=== PATIENT | female | born 1935 | race American Indian/Alaskan Native ===

== ENCOUNTER 2016-10-19 17:28 | Observation (INO) | payer MEDICARE, MEDICAID ==
[2016-10-19 17:29] VITALS: PULSE 80
[2016-10-19 17:58] VITALS: BMI 16.6
--- NOTE | 2016-10-19 18:27 | ED PDOC ---
Arrival/HPI - General Historian: Patient, Family - History of Present Illness Time/Duration: 24 hours Symptom Onset: Sudden Symptom Course: Unchanged <Kelechi Hutchinson - Last Filed: 10/19/16 21:33> <Demarcus Donato Meka - Last Filed: 10/19/16 22:34> - General Chief Complaint: Abdominal Pain Time Seen by Provider: 10/19/16 17:31 - History of Present Illness Narrative History of Present Illness (Text): 10/19/16 18:21 81 F with PMHx of gastritis, CHF, CAD, SBO and Takotsubo syndrome presents to [facility] ED with complaints of nausea and vomiting. Pt's family was at bedside and helped with history as pt has baseline dementia. It was reported that the pt began feeling nauseous last night and subsequently vomited nbnb emesis a total of 6 times, last of which was this morning. Pt had a bowel movement this morning , however, was unable to describe whether or not it was loose. Pt family also provided that the patient stated that her abdomen was hurting her this morning, prior to coming to the ED. Pt admitted to dizziness. ROS unavailable on account of AMS. PMD: Dr. Hanks (Kelechi Hutchinson) Past Medical History - Past History Past History: No Previous - Tetanus Immunization Tetanus Immunization: Unknown - Past Medical History Past Medical History: No Previous - Pulmonary Hx Pneumonia: Yes - Neurological Hx Dementia: Yes - HEENT Hx Difficulty Chewing: No Hx Glaucoma: Yes - Endocrine/Metabolic Hx Endocrine Disorders: No - Hematological/Oncological Hx Blood Transfusions: No Hx Blood Transfusion Reaction: No - Musculoskeletal/Rheumatological Hx Falls: No - Gastrointestinal Hx Gastrointestinal Disorders: Yes - Genitourinary/Gynecological Hx Genitourinary Disorders: No Hx Reproductive Disorders: No - Psychiatric Hx Psychophysiologic Disorder: No Hx Emotional Abuse: No Hx Physical Abuse: No Hx Substance Use: No - Past Surgical History Past Surgical History: No Previous - Surgical History Other/Comment: ABD SURGERY - Anesthesia Hx Anesthesia Reactions: No Hx Malignant Hyperthermia: No - Suicidal Assessment Feels Threatened In Home Enviroment: No <Kelechi Hutchinson - Last Filed: 10/19/16 21:33> Family/Social History Family/Social History: No Known Family HX Smoking Status: Never Smoked Hx Alcohol Use: No Hx Substance Use: No Hx Substance Use Treatment: No <Kelechi Hutchinson - Last Filed: 10/19/16 21:33> Allergies/Home Meds <Kelechi Hutchinson - Last Filed: 10/19/16 21:33> <Demarcus Donato - Last Filed: 10/19/16 22:34> Allergies/Adverse Reactions: Allergies unknown iv med Allergy (Uncoded 10/19/16 17:32) DIZZINESS Home Medications: Home Meds Medication Instructions Recorded Confirmed Vitamin B Complex & Vitamin C 1 tab PO DAILY 08/15/12 10/19/16 [Strovite] Aspirin [Adult Low Dose Aspirin EC] 81 mg PO DAILY 10/19/16 10/19/16 Brimonidine Tartrate/Timolol 1 drop OU BID 10/19/16 10/19/16 [Combigan 0.2%-0.5% Eye Drops] Memantine HCl [Namenda Xr] 1 cap PO DAILY 10/19/16 10/19/16 Review of Systems - Review of Systems Systems not reviewed;Unavailable: Altered Mental Status <Kelechi Hutchinson - Last Filed: 10/19/16 21:33> Physical Exam - Physical Exam Physical Exam Limitations: Altered Mental Status Temperature: Afebrile Blood Pressure: Hypertensive Pulse: Regular Respiratory Rate: Normal Appearance: Positive for: Well-Appearing, Non-Toxic, Comfortable Pain Distress: None Mental Status: Positive for: Lethargic, other (AAOx2) - Systems Exam Head: Present: Atraumatic, Normocephalic Pupils: Present: PERRL Extroacular Muscles: Present: EOMI Conjunctiva: Present: Normal Mouth: Present: Moist Mucous Membranes Neck: Present: Normal Range of Motion Respiratory/Chest: Present: Clear to Auscultation, Good Air Exchange. No: Respiratory Distress, Accessory Muscle Use Cardiovascular: Present: Regular Rate and Rhythm, Normal S1, S2. No: Murmurs Abdomen: Present: Normal Bowel Sounds. No: Tenderness, Distention, Peritoneal Signs Upper Extremity: Present: Normal Inspection. No: Cyanosis, Edema Lower Extremity: Present: Normal Inspection. No: Edema Neurological: Present: GCS=15, CN II-XII Intact, Speech Normal Skin: Present: Warm, Dry, Normal Color. No: Rashes Psychiatric: Present: Lethargic <Kelechi Hutchinson - Last Filed: 10/19/16 21:33> Vital Signs Temp Pulse Resp BP Pulse Ox 10/19/16 18:51 84 176/93 H 10/19/16 18:26 97.1 F L 10/19/16 18:22 79 16 176/93 H 94 L 10/19/16 17:41 97.5 F L 84 22 181/123 H 99 Medical Decision Making Re-evaluation Time: 21:40 Reassessment Condition: Improving,but remains with symptoms <Kelechi Hutchinson - Last Filed: 10/19/16 21:33> <KingaDemarcus L - Last Filed: 10/19/16 22:34> ED Course and Treatment: 10/19/16 18:36 81 F presenting to [facility] ED with complaints of abdominal pain, n/v x 6, and AMS. R /o Sepsis vs Intracranial path vs hepatic encephalopathy vs Electrolyte abnormality - CBC - CMP - CTH - Abd Xray - UA/UCx - Labetolol - EKG - Pct - Blood Cx - Trop - VBG - CXR - Reassess and Dispo 10/19/16 21:35 Pt was reassessed pt is feeling slightly better. Pt remains hypertensive for which another dose of labetolol was administered. Labwork demonstrates a Respiratory alkylosis, hgb of 16.6, likely 2/2 hemoconcentration, ketones in UA , and slight hyponatremia. Pt remains afebrile without any signs of infx, however is still lethargic and altered. Dr. Hanks was contacted and agreed to admit to telemetry for further workup. (Kelechi Hutchinson) 10/19/16 21:43 Patient seen and examined with resident. Came up with treatment and disposition plan with resident. The patient is a 81 year old female who comes into the emergency department for evaluation of nausea and vomiting. Patient has a history of dementia and there for history of obtain via help from the family. They state she said her belly hurt but patient denies it. Patient does admit she vomited. Patient denies any headache or dizziness. She does say she's weak. No fever or bodyaches. No diarrhea or constipation. Last BM was this AM. Additional HPI details as noted by the resident. Physical examination reveal patient is hypertensive. AAOx2. Does not know the year. Family says her confusion is more like very drowsy. PERHARRIET SCHROEDER, No Nystagmus Abdomen soft and not tender, not distended Lungs clear. No w/r/r. Neuro: CN2-12 intact, no nfd, MS 5/5 AE, sensation intact Altered mental status, Drowsy, Vomiting, Abdominal Pain r/o Sepsis, Dehydration, Electrolyte abdnormality, less likely ACS -- Labs -- EKG, CXR -- CT Head -- CT abd pelv was ordered with IV contrast. While performing the IV contrast study, Radiology informed the RN Case that the line infiltrated. Family did not want another IV line. They said she doesn't want her mom to get stuck anymore. CT abd pelv was completed without IV contrast. EKG interpreted by me: NSR @ 76 bpm, t wave inversion in V1 and V2 10/19/16 22:25 CXR nl EXAM: CT Abdomen and Pelvis Without Intravenous Contrast CLINICAL HISTORY: 81 years old, female; Pain; Abdominal pain; Generalized; Additional info: Abd pain R/O obstruction IMPRESSION: Markedly distended bladder. Neurogenic bladder or bladder outlet obstruction could be considered clinically. No bowel obstruction or other acute intra-abdominal pathology. Thank you for allowing us to participate in the care of your patient. Dictated and Authenticated by: Nidia Leiva MD 10/19/2016 10:11 PM Eastern Time ([place] & [place]) 10/19/16 22:[address] showed distended bladder. UA negative but will treat with Rocephin. Discussed with Dr. Hanks who agreed with plan for admission to Telemetry for Altered Mental status r/o Sepsis, Abdominal Pain and Vomiting, Dehydration (Demarcus Donato) - Lab Interpretations Lab Results: 10/19/16 19:00 10/19/16 19:00 Lab Results 10/19/16 19:00: WBC 4.1 L, RBC 5.14, Hgb 16.6 H, Hct 46.1, MCV 89.7, MCH 32.3, MCHC 36.0, RDW 13.0, Plt Count 275, MPV 8.7, Gran % 82.4 H, Lymph % (Auto) 14.2 L, [place] % (Auto) 3.2, Eos % (Auto) 0.0 L, Baso % (Auto) 0.2, Gran # 3.37, Lymph # 0.6 L, [place] # 0.1, Eos # 0.0, Baso # 0.01, PT 12.6 H, INR 1.17 H, APTT 30.8, pO2 200 H, VBG pH 7.55 H, VBG pCO2 23.0 L, VBG HCO3 20.1 L, VBG Total CO2 20.8 L , VBG O2 Sat (Calc) 99.4 H, VBG Base Excess -0.5 L, VBG Potassium 4.0, Glucose 122 H, Lactate 2.0, FiO2 21.0, Sodium 133.0, Potassium 4.0, Chloride 98.0, Carbon Dioxide 25, Anion Gap 16, BUN 5 L, Creatinine 0.6, Est GFR ( Amer ) > 60, Est GFR (Non-Af Amer) > 60, Random Glucose 121 H, Calcium 10.2, Phosphorus 2.8, Magnesium 2.0, Total Bilirubin 0.9, AST 28, ALT 22, Alkaline Phosphatase 115, Troponin I 0.01, Total Protein 9.3 H, Albumin 4.6, Globulin 4.7 , Albumin/Globulin Ratio 1.0 L, Procalcitonin < 0.05 L, Venous Blood Potassium 4.0 10/19/16 18:20: Urine Color Yellow, Urine Appearance Turbid, Urine pH 8.0, Ur Specific [place] 1.020, Urine Protein 30 H, Urine Glucose (UA) Negative, Urine Ketones 40 H, Urine Blood Trace-intact H, Urine Nitrate Negative, Urine Bilirubin Negative, Urine Urobilinogen 0.2, Ur Leukocyte Esterase Negative, Urine RBC 0 - 2, Urine WBC 0 - 2, Urine Bacteria Trace - RAD Interpretation Radiology Orders: 10/19/16 18:17 CHEST PORTABLE [RAD] Stat 10/19/16 18:19 HEAD W/O CONTRAST [CT] Stat ABDOMEN (FLAT PLATE) 1VIEW [RAD] Stat 10/19/16 21:27 ABD & PELVIS W/O PO OR IV CONT [CT] Stat - Medication Orders Current Medication Orders: Discontinued Medications Sodium Chloride (Sodium Chloride 0.9%) 500 mls @ 999 mls/hr IV .Q31M STA Stop: 10/19/16 20:13 Last Admin: 10/19/16 20:00 Dose: 999 MLS/HR eMAR Start Stop Document 10/19/16 20:00 BIANCA (Rec: 10/19/16 20:01 [id number]) Intravenous Solution Start Date 10/19/16 Start Time 20:00 End Date 10/19/16 End time 21:00 Total Infusion Time 60 Ceftriaxone Sodium (Rocephin 1 Gram Ivpb) 100 mls @ 200 mls/hr IVPB STAT STA PRN Reason: Protocol Stop: 10/19/16 22:03 Iohexol (Omnipaque 350 100 Ml) Confirm Administered Dose 350 mg .ROUTE .STK-MED ONE Stop: 10/19/16 19:54 Labetalol HCl (Trandate) 10 mg IV STAT STA Stop: 10/19/16 18:34 Last Admin: 10/19/16 18:51 Dose: 10 MG MAR Pulse and Blood Pressure Document 10/19/16 18:51 GAIL (Rec: 10/19/16 18:53 GAIL [facility] [id number]) Pulse Pulse Rate (60-90) 84 Blood Pressure Blood Pressure (100/60-150/90) 176/93 eMAR Start Stop Document 10/19/16 18:51 GAIL (Rec: 10/19/16 18:53 GAIL [id number]) Intravenous Solution Start Date 10/19/16 Start Time 18:53 End Date 10/19/16 End time 18:56 Total Infusion Time 3 Labetalol HCl (Trandate) 10 mg IV STAT STA Stop: 10/19/16 21:32 Ondansetron HCl (Zofran Inj) Confirm Administered Dose 4 mg .ROUTE .STK-MED ONE Stop: 10/19/16 19:54 Last Admin: 10/19/16 20:01 Dose: Ondansetron HCl (Zofran Inj) 4 mg IVP STAT STA Stop: 10/19/16 19:57 Last Admin: 10/19/16 19:58 Dose: 4 MG IVP Administration Document 10/19/16 19:58 BIANCA (Rec: 10/19/16 19:58 [facility]IANCA [id number]) Charges for Administration # of IVP Administrations 1 NIHSS Scale ([place]) Time Performed: 17:31 - How Severe is the Stoke Baseline Level of Consciousness: 1=Drowsy LOC to Questions: 0=Both comments correct LOC to commands: 0=Obeys both correctly Best Gaze: 0=Normal Visual: 0=No visual loss Facial: 0=Normal Motor Arm - Left: 0=No drift Motor Arm - Right: 0=No drift Motor Leg - Left: 0=No drift Motor Leg - Right: 0=No drift Limb Ataxia: 0=Absent Sensory: 0=Normal Best Language: 0=No aphasia Dysarthia: 0=Normal articulation Extinction & Inattention (Neglect): 0=Normal, no object Score: 1 Risk Level: Minor Stroke Risk <Demarcus Donaot - Last Filed: 10/19/16 22:34> Disposition/Present on Arrival - Present on Arrival Any Indicators Present on Arrival: No History of DVT/PE: No History of Uncontrolled Diabetes: No Urinary Catheter: No History of Decub. Ulcer: No History Surgical Site Infection Following: None - Disposition Have Diagnosis and Disposition been Completed?: Yes Disposition Time: 21:40 Patient Plan: Telemetry <Kelechi Hutchinson - Last Filed: 10/19/16 21:33> - Present on Arrival Any Indicators Present on Arrival: No - Disposition Have Diagnosis and Disposition been Completed?: Yes Disposition Time: 22:34 Patient Plan: Admission <Demarcus Donato - Last Filed: 10/19/16 22:34> - Disposition Diagnosis: Altered mental status, Abdominal pain, Hypertension Disposition: HOSPITALIZED Patient Problems: Current Active Problems Problem Status Diagnosed Abdominal pain Acute Altered mental status Acute Hypertension Acute Condition: GUARDED
[2016-10-19] MEDS ORDERED: Labetalol 5 mg/ml Inj 20ML IV STA ×2 (18:33→21:31)
[2016-10-19 18:42] LABS: URINE BILIRUBIN NEGATIVE (NEGATIVE); URINE BLOOD TRACE-INTACT (NEGATIVE); URINE GLUCOSE (UA) NEGATIVE (NEGATIVE); URINE KETONE 40 mg/dL (NEGATIVE); URINE LEUKOCYTE ESTERASE NEGATIVE Leu/uL (NEGATIVE); URINE PROTEIN 30 mg/dL (<30 mg/dL); URINE UROBILINOGEN 0.2 E.U./dL (<1 E.U./dL)
[2016-10-19 18:44] LABS: URINE APPEARANCE TURBID (CLEAR); URINE COLOR YELLOW (YELLOW)
[2016-10-19 18:48] LABS: URINE BACTERIA TRACE (NEG); URINE RBC 0 - 2 /hpf (0-2); URINE WBC 0 - 2 /hpf (0-6)
[2016-10-19 19:09] LABS: ADD MANUAL DIFF? NO
[2016-10-19 19:12] LABS: BASO # 0.01 K/mm3 (0.0-2.0); BASO % 0.2 % (0.0-3.0); GRAN # 3.37 (1.4-6.5); GRAN % 82.4 % (50.0-68.0); HEMATOCRIT 46.1 % (36.0-48.0); LYMPH # 0.6 (1.2-3.4); LYMPH % 14.2 % (22.0-35.0); MEAN CELL VOLUME 89.7 fL (80.0-105.0); MEAN CORPUSCULAR HEMOGLOBIN 32.3 pg (25.0-35.0); MEAN PLATELET VOLUME 8.7 fl (7.0-11.0); MONO # 0.1 (0.1-0.6); MONO % 3.2 % (1.0-6.0); PLATELET COUNT 275 10^3/uL (120.0-450.0); VENOUS BLOOD GAS BASE EXCESS -0.5 mmol/L (0.0-2.0); VENOUS BLOOD PH 7.55 (7.32-7.43); WHITE BLOOD COUNT 4.1 10^3/ul (4.5-11.0)
[2016-10-19 19:24] LABS: INR 1.17 (0.93-1.08); PARTIAL THROMBOPLASTIN TIME 30.8 Seconds (23.7-30.8)
[2016-10-19 19:31] LABS: ALKALINE PHOSPHATASE 115 U/L (38-133); ALT/SGPT 22 U/L (7-56); AST/SGOT 28 U/L (15-39); BILIRUBIN,TOTAL 0.9 mg/dL (0.2-1.3); BLOOD UREA NITROGEN 5 mg/dL (7-21); CALCIUM 10.2 mg/dL (8.4-10.5); CARBON DIOXIDE 25 mmol/L (21-33); CHLORIDE 93 mmol/L (98-107); GFR AFRICAN-AMERICAN > 60; GLUCOSE,RANDOM 121 mg/dL (70-110); PHOSPHOROUS 2.8 mg/dL (2.5-4.5); SODIUM 130 mmol/L (132-148); TOTAL PROTEIN 9.3 g/dL (5.8-8.3)
[2016-10-19 19:42] LABS: TROPONIN I 0.01 ng/mL
[2016-10-19] MEDS ORDERED: Sodium Chloride 0.9% 500 ML IV STA (19:43)
[2016-10-19] MEDS ORDERED: Iohexol 350 MG/100 ML VIAL ONE (19:53)
[2016-10-19] MEDS ORDERED: Piperacillin/Tazobact 3.375 gm 100 ML IVPB STA (21:31)
[2016-10-19] MEDS ORDERED: cefTRIAXone 1 gm 100 ML IVPB STA (21:34)
[2016-10-20 01:15] LABS: VENOUS BLOOD GAS BASE EXCESS -0.8 mmol/L (0.0-2.0); VENOUS BLOOD PH 7.34 (7.32-7.43)
[2016-10-20] MEDS: Dextrose 5%/0.45% NS 1,000 ML IV SCH ×2 (04:02→18:56)
--- NOTE | 2016-10-20 07:37 | CT ---
PROCEDURE: CT HEAD WITHOUT CONTRAST. HISTORY: altered mental status COMPARISON: Noncontrast head CT performed 12/16/14 TECHNIQUE: Axial computed tomography images were obtained through the head/brain without intravenous contrast. Radiation dose: Total exam DLP = 725.84 mGy-cm. This CT exam was performed using one or more of the following dose reduction techniques: Automated exposure control, adjustment of the mA and/or kV according to patient size, and/or use of iterative reconstruction technique. FINDINGS: Streak artifact obscures evaluation of the skullbase. HEMORRHAGE: No intracranial hemorrhage. BRAIN: Diffuse atrophy with prominence of the ventricles and sulci noted. No mass effect or edema. Mild scattered white matter hypodensities, which are nonspecific, but often seen with chronic microvascular ischemic disease. Please note that MRI with diffusion imaging is more sensitive in the detection of acute ischemic event. VENTRICLES: No hydrocephalus. CALVARIUM: Unremarkable. PARANASAL SINUSES: Mucosal thickening of the ethmoid air cells. MASTOID AIR CELLS: Unremarkable as visualized. No inflammatory changes. OTHER FINDINGS: None. IMPRESSION: No acute intracranial pathology identified. Additional findings as above. Preliminary impression was provided by virtual radiologic.
[2016-10-20] MEDS: Enoxaparin 40 mg Syringe SC SCH (09:40)
[2016-10-20] MEDS: MEMANTINE HCL PO SCH (10:00)
[2016-10-20] MEDS: VITAMIN C PO SCH (10:00)
[2016-10-20] MEDS: Non Formulary Medication (Brimonidine Tartrate/Timolol [Combigan 0.2%-0.5% Eye Drops] 1 DR OU SCH ×2 (10:00→18:28)
[2016-10-20] MEDS: VITAMIN B COMPLEX PO SCH (10:00)
--- NOTE | 2016-10-20 10:36 | RAD ---
HISTORY: Sepsis Patient COMPARISON: 10/14/2012 FINDINGS: LUNGS: No active pulmonary disease. PLEURA: No significant pleural effusion identified, no pneumothorax apparent. CARDIOVASCULAR: Normal. Moderate aortic tortuosity OSSEOUS STRUCTURES: No significant abnormalities. VISUALIZED UPPER ABDOMEN: Normal. OTHER FINDINGS: None. IMPRESSION: No active disease.
--- NOTE | 2016-10-20 10:39 | RAD ---
HISTORY: abd pain` COMPARISON: No prior. FINDINGS: BOWEL: Normal. No obstruction. No free air. Mild to moderate constipation BONES: Normal. OTHER FINDINGS: None. IMPRESSION: Moderate constipation
--- NOTE | 2016-10-20 11:22 | CT ---
PROCEDURE: CT Abdomen and Pelvis without Oral or IV contrast. HISTORY: abd pain r/o obstruction COMPARISON: CT abdomen and pelvis without contrast performed 10/15/12 TECHNIQUE: Contiguous axial images of the abdomen and pelvis. No oral or IV contrast administered. Coronal and Sagittal reformats generated and reviewed. This CT exam was performed using 1 or more of the falling dose reduction techniques: Automated exposure control, adjustment of the MAA and/or kV according to patient size, and/or use of iterative reconstruction technique Radiation dose: Total exam DLP = 209.39 mGy-cm. FINDINGS: There is limited evaluation of the solid organs without the administration of IV contrast. LOWER THORAX: 6 mm pulmonary nodule, right lower lobe. No visible pleural effusion or pneumothorax. LIVER: Unremarkable unenhanced appearance. GALLBLADDER AND BILE DUCTS: Cholecystectomy. PANCREAS: Unremarkable unenhanced appearance. SPLEEN: Unremarkable unenhanced appearance. ADRENALS: Not well-visualized. KIDNEYS AND URETERS: No hydronephrosis or obstructing renal calculus. Exophytic right lower pole low-density lesion measuring approximately 4.2 x 4.2 cm appears compatible with a cyst. BLADDER: Distended urinary bladder. REPRODUCTIVE: Uterus is not identified presumably due to hysterectomy. APPENDIX: The appendix is not identified. No secondary signs of acute appendicitis. BOWEL: The stomach is nondistended. Lack of oral contrast limits evaluation for bowel pathology. Prior bowel resection. No evidence of bowel obstruction. Mild to moderate constipation. PERITONEUM: No significant free fluid. No definite free air. LYMPH NODES: No bulky lymphadenopathy identified. VASCULATURE: Limited unenhanced appearance. Atherosclerotic calcifications. BONES: Degenerative changes. Mild curvature of the lumbar spine convex the left. OTHER FINDINGS: None. IMPRESSION: Examination limited by paucity of intra-abdominal and intrapelvic fat as well as lack of IV or oral contrast. Markedly distended urinary bladder. Correlate clinically for neurogenic bladder or bladder outlet obstruction. Exophytic right lower pole low-density lesion measuring approximately 4.2 x 4.2 cm appears compatible with a cyst. 6 mm pulmonary nodule, right lower lobe. Grossly stable since CT performed 10/15/12. Preliminary impression was provided by virtual radiologic.
[2016-10-20] MEDS ORDERED: Enoxaparin 40 mg Syringe SC SCH (12:45)
[2016-10-20] MEDS: cefTRIAXone 1 gm 100 ML IVPB SCH (13:09)
--- NOTE | 2016-10-20 13:58 | CP.PCM.PN ---
Subjective - Date & Time of Evaluation Date of Evaluation: 10/20/16 Time of Evaluation: 11:00 - Subjective Subjective: Patient has very poor veins,needs iv access. Objective - Vital Signs/Intake and Output Vital Signs (last 24 hours): Temp Pulse Resp BP Pulse Ox 97.7 F 84 18 190/90 H 97 10/20/16 06:00 10/20/16 09:39 10/20/16 09:00 10/20/16 09:39 10/20/16 09:00 Intake and Output: 10/20/16 10/20/16 06:59 18:59 Intake Total 300 Output Total 1000 Balance -700 - Medications Medications: Current Medications Amlodipine Besylate (Norvasc) 5 mg PO DAILY [facility] Aspirin (Ecotrin) 81 mg PO DAILY [facility] Last Admin: 10/20/16 09:40 Dose: 81 mg Enoxaparin Sodium (Lovenox) 40 mg SC DAILY [facility] Last Admin: 10/20/16 09:40 Dose: 40 mg Dextrose/Sodium Chloride (Dextrose 5%/0.45% Ns 1000 Ml) 1,000 mls @ 75 mls/hr IV .[id number] [facility] Last Admin: 10/20/16 04:02 Dose: 75 mls/hr Non-Formulary Medication (Brimonidine Tartrate/Timolol [Combigan 0.2%-0.5% Eye Drops]) 1 drop OU BID [facility] Non-Formulary Medication (Memantine Hcl [Namenda Xr]) 1 cap PO DAILY [facility] Non-Formulary Medication (Vitamin B Complex & Vitamin C [Strovite]) 1 tab PO DAILY [facility] Ondansetron HCl (Zofran Inj) 4 mg IVP Q4H PRN PRN Reason: Nausea/Vomiting Pantoprazole Sodium (Protonix Inj) 40 mg IVP DAILY [facility] Last Admin: 10/20/16 09:39 Dose: 40 mg Rivastigmine (Exelon 4.6 Mg/24 Hr Patch) 1 patch TD DAILY [facility] Last Admin: 10/20/16 09:40 Dose: 1 patch - Labs Labs: PT 12.6 Seconds (9.9-11.8) H 10/19/16 19:00 INR 1.17 (0.93-1.08) H 10/19/16 19:00 APTT 30.8 Seconds (23.7-30.8) 10/19/16 19:00 - Constitutional Appears: No Acute Distress Assessment and Plan - Assessment and Plan (Free Text) Assessment: Poor venous access Plan: One attempt to insert hep lock was not successful. Patient refused to let me try again. Also,she refused a line in her neck. PMD to be notified.
[2016-10-20] MEDS: POLYETHYLENE GLYCOL 3350 17 GM/Dose PACKET PO SCH (14:56)
--- NOTE | 2016-10-20 15:46 | CON ---
DATE: 10/20/2016 Seen and examined at the bedside earlier today. The chart was reviewed. REQUEST FOR CONSULTATION: For abdominal pain. HISTORY OF PRESENT ILLNESS: This is an 81-year-old female with a past medical history of gastric ulc er disease, diverticulosis, coronary artery disease, CHF and Takotsubo syndrome. Came to the Emergen cy Room with complaints of nausea and vomiting. The patient's daughter was at the bedside this jayjay morton. The patient has dementia. Explained that the patient had symptoms of nausea that started the ni ght before and had vomited multiple times, but no bright red blood or coffee-ground vomitus. The pat gayla did have a bowel movement that morning, but unsure if it was loose, but does not report any brig ht red blood or melena as well as complaints of abdominal pain. The patient is awake and alert at th e bedside, but does not really answer questions. On admission, the patient had an abdominal x-ray, w hich reported moderate constipation. She then had a CT scan of the abdomen and pelvis with no contra st and reported markedly distended urinary bladder, correlate clinically for neurogenic bladder or bl adder outlet obstruction. It reported an exophytic right lower pole low density lesion measuring dilan roximately 4.2 cm x 4.2 cm, appears compatible with a cyst as well as a 6 mm pulmonary nodule in the right lower lobe, but reports that this is stable since CT scan performed on 10/15/2012, although it s ays exam is limited by paucity of intra-abdominal and intrapelvic fat as well as lack of IV or oral c ontrast. The patient has not had any episodes since admission of nausea, vomiting. She also had a h ead CT that was negative, no intracranial hemorrhage or acute intracranial pathology identified. PAST MEDICAL HISTORY: Peptic ulcer disease, congestive heart failure, gastritis, coronary artery dis ease, small bowel obstruction, Takotsubo syndrome, pneumonia, dementia, diverticulosis, dementia. PAST SURGICAL HISTORY: She had breast biopsies in the past, cholecystectomy, lysis of adhesions. He r last endoscopy was 08/2012 for history of gastric ulcers. This showed . Duodenal biopsies neg ative for celiac disease. Gastric biopsies negative for H. pylori. Her last colonoscopy was 11/2011 for gastrointestinal bleed, found to have diverticulosis and hemorrhoids. ALLERGIES: No known drug allergies. SOCIAL HISTORY: No history of tobacco use, ETOH or substance abuse. FAMILY HISTORY: Noncontributory at this time. MEDICATIONS: Reviewed as per MAR. REVIEW OF SYSTEMS: Systems reviewed with positive findings, see HPI. VITAL SIGNS: Temperature was 97.7, blood pressure was 190/90, pulse 84, respirations 18, 97% on room air. LABORATORIES: From 10/19, WBC 4.1, H and H is 16.6 and 46.1, platelets of 275. PT is 12.6, INR is 1. 17, PTT 30.8. Her sodium is 130, K 4.0, BUN 5, creatinine is 0.6, magnesium is 2.0. Total bilirubin is 0.9, AST 28, ALT 22, alkaline phosphatase is 115. Troponin is 0.01. Urinalysis was done and caroline t was negative for leukocyte esterase. It showed trace blood, positive for ketones and protein. DIAGNOSTICS: Chest x-ray was done, no active disease. The abdominal x-ray, CT scan and had CT repor ts were also reviewed as discussed in the HPI. PHYSICAL EXAMINATION: HEENT: Sclerae anicteric. NECK: Supple. CARDIAC: S1, S2. LUNG SOUNDS: With decreased breath sounds, but no rales or wheeze. ABDOMEN: With bowel sounds, nondistended, nontender on palpation. No rebound or guarding. EXTREMITIES: Positive pulses. No edema. NEUROLOGIC: The patient is awake and alert. ASSESSMENT: This is an 81-year-old female, came in with complaint of nausea, vomiting, abdominal pearl n. She has a history of dementia, Takotsubo syndrome, congestive heart failure, history of small bow el obstruction, rule out any obstruction, though the CT scan was negative for bowel obstruction, it d id show patient with bladder distention and also noted to have constipation. The patient has history of coronary artery disease, peptic ulcer disease, diverticulosis. PLAN: Continue clear liquid diet, advance as tolerated. The patient will start on bowel regimen, gi ve a dose of MiraLax. The patient is on IV antibiotics of Rocephin. Continue gastrointestinal proph ylaxis, on Protonix and is on Zofran p.r.n. Continue IV fluids for hydration. Thank you for this consult and for allowing us to participate in your patient's care. We will make f alverto recommendations based upon patient's clinical course. The patient was seen and case discussed with Dr. Tam. Zina MO cc: [id number] TT: 10/20/2016 15:45:22 Confirmation # [id number] Dictation # [id number]
--- NOTE | 2016-10-20 16:50 | CARD ---
APPROVED REPORT EKG Measurement Heart [id number] <Conclusion> Normal sinus rhythm Possible Left atrial enlargement T wave abnormality, consider anterior ischemia Abnormal ECG
--- NOTE | 2016-10-20 19:04 | CON ---
DATE: 10/20/2016 AGE: An 81-year-old woman. CHIEF COMPLAINT: Confusion. HISTORY OF PRESENT ILLNESS: This is an 81-year-old woman with past medical history of gastric ulcer disease, diverticulosis, coronary artery disease, CHF, Takotsubo syndrome, came to the hospital for n ausea, vomiting, and has been having also diarrhea. The patient said that has vomited about 6 times. In addition, was found to be slightly dehydrated. CT abdomen and pelvis with no contrast just rep ort a markedly distended bladder, coordinating with bladder outlet obstruction or neurogenic bladder. CT head showed no acute intracranial abnormalities. Was found to have elevated systolic and diasto lic blood pressures, and has a baseline cognitive impairment. PAST MEDICAL HISTORY: History of peptic ulcer disease, congestive heart failure, gastritis, coronary artery disease, small-bowel obstruction, Takotsubo syndrome, pneumonia, and dementia. PAST MEDICAL HISTORY: History of endoscopy in 08/2005 for gastric ulcers. She had a colonoscopy 2011 for gastrointestinal bleed. Finding of and hemorrhoids. ALLERGIES: No known drug allergies. SOCIAL HISTORY: No illicit drug use, smoking, or ETOH abuse. FAMILY HISTORY: Noncontributory. MEDICATIONS: Reviewed via nurses' reconciliation sheet. REVIEW OF SYSTEMS: A 14-point review of systems is negative except for the HPI. PHYSICAL EXAMINATION: Temperature 97.2, pulse rate of 105, carbon dioxide 151/100, respiratory rate 20, saturation 98% via room air. GENERAL EXAMINATION: The patient is sitting up in bed, no acute distress. HENT: Atraumatic, normocephalic. PERRLA, extraocular muscles intact. NECK: Supple, no JVD, no adenopathy noted. LUNGS: Clear to auscultation. No adventitious sounds. HEART: S1, S2, normal rate and rhythm. No murmurs, rubs, or gallops. ABDOMEN: Soft, nontender, nondistended. Bowel sounds are present. EXTREMITIES: No clubbing, no cyanosis. Peripheral pulses 2+ felt bilaterally. NEUROLOGIC EXAMINATION: The patient is alert, slightly drowsy, in no acute distress. Speech is flue nt, without any errors. Recall after 5 minutes is 0/3. Poor attention span. Slowed thought process . Cranial nerves II-XII intact. MOTOR EXAMINATION: Slight increased tone throughout. Moves all extremities equally. No pronator dr ift seen. SENSORY EXAMINATION: Light touch, pinprick, proprioception, vibration intact. DTRs are 2+ throughou t. COORDINATION: Oogrgi-ls-[id number] intact. GAIT: Deferred for now. LABORATORIES: Sodium is 130, potassium is 4, chloride 93, carbon dioxide 25, BUN of 5, creatinine 0. 6, glucose 121. ASSESSMENT AND PLAN: This is an 81-year-old woman. History of hypertension, congestive heart failur e, gastritis, Takotsubo syndrome, history of gastrointestinal bleed, small-bowel obstruction, who cam e with nausea, vomiting, and abdominal pain, and had multiple episodes. Found to be also slightly de hydrated, and found to have elevated systolic and diastolic blood pressures. Consult was called for altered mental status. Altered mental status likely secondary to hypertensive urgency superimposed o n underlying dehydration upon acute on chronic kidney injury, superimposed underlying cognitive impai rment. At this time, recommend: 1. Hydrate the patient. 2. Keep his systolic blood pressure between 120-130 mmHg. 3. Aspirin 81 mg p.o. daily for stroke prevention. 4. Continue her on Namenda XR 14 mg 1 capsule p.o. t.i.d. for and rivastigmine, which is the Exelon p atch, 1 patch for total daily for her underlying cognitive impairment/dementia. 5. Monitor GI's recommendation and plans for nausea, vomiting, abdominal pain. 6. Given that she has elevated systolic and diastolic blood pressures because of the pain, would donis mmend to control her blood pressures if possible. A CAT scan showed no acute intracranial abnormalit y. Will defer to the MRI of brain for now. Continue GI and DVT prophylaxis. Continue with current present management, and physical therapy asse ssment. Thank you for this consult. Jaylon Miles MD cc: [id number] TT: 10/20/2016 19:04:14 Confirmation # [id number] Dictation # [id number] angie
[2016-10-21] MEDS: Dextrose 5%/0.45% NS 1,000 ML IV SCH (06:27)
--- NOTE | 2016-10-21 08:25 | CON ---
DATE: 10/20/2016 REASON FOR CONSULTATION: Cardiac evaluation, uncontrolled hypertension, history of coronary artery d isease. BRIEF CLINICAL HISTORY: This is an 81-year-old female with past medical history significant for golden ritis, CHF, coronary artery disease, small bowel obstruction, history of Takotsubo syndrome, came to the Emergency Room with complaint of nausea, vomiting. The patient found to be uncontrolled hyperten rima. Cardiology consult was called. The patient denies any chest pain, shortness of breath, any pa lpitation. The granddaughter is at the bedside. PAST MEDICAL HISTORY: Significant for history of hypertension. Also, the patient admitted in 2012 f or intestinal obstruction which improved. History of coronary artery disease, status post cardiac ca theterization in 2012. Previous cardiac workup as follows: The patient had a cardiac catheterization in 07/2012 when [facility] was [facility] with intestinal obstruction. After stabilized, the patient underwent cardiac arsenio terization for non-STEMI that shows ejection fraction significantly decreased, ejection fraction 15%, but essentially mild CAD. The diagnosis made at that time Takotsubo syndrome with apical ballooning , ejection fraction 15%. Also, right heart catheterization at that time revealed RA 2/4, RV 30/2, PA 29/11. Mean PA was 18. Pulmonary capillary wedge pressure 15. Cardiac output 1.5 and cardiac inde x 1.3. Later on, MUGA scan 07/28/2012 shows ejection fraction improved to 61%. SOCIAL HISTORY: Denies smoking. Denies any history of alcohol abuse. ALLERGIES: No known drug allergy. CURRENT MEDICATIONS: The patient is taking vitamin B complex, methenamine, Namenda, Combigan, aspiri n. PHYSICAL EXAMINATION: VITAL SIGNS: Temperature afebrile, heart rate 105, blood pressure 151/100. HEENT: PERRLA. Extraocular muscles intact. NECK: Supple. No carotid bruits. No thyromegaly. CHEST: Clear to auscultation. HEART: S1, S2 regular. ABDOMEN: Soft. EXTREMITIES: Clubbing and cyanosis negative. LABORATORY DATA: Blood workup as follows: WBC 4.8, hemoglobin 16.6, hematocrit 46.1, platelet count 275. Chemistry shows sodium 130, potassium 4, chloride 93, carbon dioxide 25, anion gap of 5, BUN 1 6, creatinine 0.6. Troponin 0.01. IMPRESSION: Uncontrolled hypertension, Takotsubo syndrome, history of intestinal obstruction in the past. Cardiac catheterization 2012 shows significantly decreased left ventricular function with apic al ballooning. Later on, significantly improved. MUGA scan shows preserved left ventricular functio n, ejection fraction improved. Most recent echo in the system is dated 08/2012. That showed ejection fraction 60% 2 months after the Takotsubo. RECOMMENDATION: Aggressive control of blood pressure. Avoid nephrotoxic medication. Continue DVT p rophylaxis. The patient is taking ____, increase metoprolol to 50 twice a day, increase amlodipine t o 10 mg daily, put ALIA inhibitors. Repeat echo to assess LV function. We will follow with you. Thank you, Dr. Hanks, for providing the opportunity in taking care of the patient. Yanira Moreno MD cc: [id number] TT: 10/21/2016 08:25:06 Confirmation # [id number] Dictation # [id number] tn
[2016-10-21] MEDS: VITAMIN B COMPLEX PO SCH (10:28)
[2016-10-21] MEDS: Non Formulary Medication (Brimonidine Tartrate/Timolol [Combigan 0.2%-0.5% Eye Drops] 1 DR OU SCH ×2 (10:28→17:25)
[2016-10-21] MEDS: VITAMIN C PO SCH (10:28)
[2016-10-21] MEDS: POLYETHYLENE GLYCOL 3350 17 GM/Dose PACKET PO SCH ×2 (10:28→10:39)
[2016-10-21] MEDS: MEMANTINE HCL PO SCH (10:28)
[2016-10-21] MEDS: Enoxaparin 40 mg Syringe SC SCH (10:29)
[2016-10-21] MEDS: cefTRIAXone 1 gm 100 ML IVPB SCH (10:32)
[2016-10-21 17:28] VITALS: BP 101/60; PULSE 92
--- NOTE | 2016-10-21 17:33 | PN ---
DATE: 10/21/2016 REASON FOR CONSULTATION: Follow up cardiac evaluation, uncontrolled hypertension and history of gamal nary artery disease and takotsubo syndrome. BRIEF CLINICAL HISTORY: This is an 81-year-old female with a past medical history significant for ga stritis, CHF, coronary artery disease, bowel obstruction and history of takotsubo syndrome, admitted with nausea and altered mental status. Cardiac consult was called because of uncontrolled hypertensi on. Family is at the bedside. Denies any chest pain, shortness of breath or any palpitation. PHYSICAL EXAMINATION: VITAL SIGNS: Temperature afebrile, heart rate 95 and blood pressure 112/54. HEENT: PERRLA. Extraocular muscles intact. NECK: Supple. No carotid bruits. No thyromegaly. CHEST: Clear to auscultation. HEART: S1, S2 regular. ABDOMEN: Soft. EXTREMITIES: Clubbing and cyanosis negative. LABORATORY DATA: Blood workup as follows: WBC 4.8, hemoglobin 16.6, hematocrit 46.1 and platelet co unt 275. Chemistry shows sodium 130, potassium 4, chloride 90, carbon dioxide 25, BUN 5 and creatini ne 0.6. IMPRESSION: Uncontrolled hypertension, improving, history of takotsubo syndrome, history of cardiac catheterization, normal coronaries, nausea and vomiting. The patient's last MUGA scan ____ s ignificantly improved. Ejection fraction 51%. History of takotsubo syndrome has resolved. RECOMMENDATION: Aggressive control of blood pressure. Avoid nephrotoxic medication. Continue DVT p rophylaxis. Continue metoprolol twice to get echo. I will add low dose of ALIA inhibitors to co ntrol the blood pressure. Will follow with you. Thank you, Dr. Hanks, for providing us the opportunity in taking care of the patient. Will put metop rolol 50 mg rate is well controlled as is the blood pressure. We will follow with you. If th e patient starts eating and drinking, probably will cut down the fluid to prevent going into pulmonar y edema. Will follow with you. Will DC telemetry. Thank you, Dr. Hanks, for providing the opportunity in taking care of the patient. Yanira Moreno MD cc: [id number] TT: 10/21/2016 17:32:54 Confirmation # [id number] Dictation # [id number] sn
[2016-10-21 17:49] VITALS: RESP 20; TEMP 98.3
[2016-10-21 19:05] VITALS: O2SAT 96
--- NOTE | 2016-10-22 19:06 | DS ---
HISTORY OF PRESENT ILLNESS: The patient is stable. She is taking her diet as tolerated, more of a soft diet. The patient had en doscopy. Daughter wants the patient home, because there is no aggressive and no surgical interventio n would be done for any findings and she wanted to treat her medically uncomfortably. The patient is stable. She is more awake. She recognized me. PHYSICAL EXAMINATION: VITAL SIGNS: On 10/21/2016, temperature 97.8, heart rate 99, blood pressure 144/89, respiration 18, saturation 97%. HEAD AND NECK: Normal. No JVD, no thyromegaly. CHEST: Clear. Good air entry. CARDIAC: First and second sounds are normal. ABDOMEN: Soft, nontender. EXTREMITIES: No edema. NEUROLOGIC: Normal. LABORATORY DATA: The patient had studies including endoscopy, which there is no cancer, possible mil d gastritis and possible gastroparesis. The patient also had an echocardiography, which shows good L V functions. Her CT shows some urinary retention. Mullins was put and was taken out later and she voi ded. The patient's blood pressure seems stable on beta nancy; however, we will adjust blood pressure med icine, because on discharge, her blood pressure was 90/58. So we decreased the blood pressure medici ezekiel. She is on metoprolol 50 b.i.d. We will keep that for heart rate, but otherwise, the rest of th e medication has been decreased. The patient clinically stable and will be discharged. She is miky ating p.o. diet. Discussion with the daughter to resume medication. Dementia, the Namenda the patient and will continue that. makes her sleepy, so we will hold off on that. Megace is for cancer patients. We will discussed that with the patient when we follow up as outpatient within a w ak chin. Also, the patient was given MiraLax to have a bowel movement; Zofran and soft diet recommended. DISCHARGE DIAGNOSES: 1. Gastritis, gastroparesis. 2. Dementia, severe. 3. Transient ischemic attack. 4. Hypertension. 5. Thyroid nodules. PLAN: Continue blood pressure medicine Norvasc 2.5 mg p.o. daily. Lisinopril was given 2.5 mg once a day. She was given also metoprolol 50 mg b.i.d. Continue Namenda XR 7 mg p.o. daily. Continue Ex jamaal patch. Resume her Combigan eyedrops twice a day. Also MiraLax 17 grams p.o. b.i.d. p.r.n., Zof ran Solutab 4 mg every 4 hours p.r.n. Aspirin 81 mg p.o. daily. Also, Protonix 40 mg p.o. daily. C ontinue current treatment. Follow up in the office within a week. The patient does also have a righ t adnexal cyst; it should be followed up as outpatient and no surgical intervention will be planned f or this 81-year-old female with severe dementia. The plan is to keep the patient comfortable. Ross Hanks MD cc: 223 TT: 10/22/2016 19:05:37 bill
--- NOTE | 2016-10-22 19:34 | CARD ---
APPROVED REPORT EXAM: Two-dimensional and M-mode echocardiogram with Doppler and color Doppler. INDICATION Hypertension/HCVD CAD 2D DIMENSIONS Left Atrium (2D)2.9 (1.6-4.0cm)IVSd1.2 (0.7-1.1cm) Aortic Root (2D)2.9 (2.0-3.7cm)LVDd2.5 (3.9-5.9cm) LVOT Diameter1.8 (1.8-2.4cm)PWd1.7 (0.7-1.1cm) LVDs1.7 (2.5-4.0cm)FS (%) 33.9 % LVEF (%)64.9 (>50%) M-Mode DIMENSIONS Aortic Cusp Exc.0.60 (1.5-2.0cm) Aortic Valve AoV Peak Xsjawylo662.0cm/sAoV VTI32.3cmAO Peak GR.14mmHg LVOT Peak Dfjyrjqv74.8cm/sLVOT VTI16.90cmAO Mean GR.7mmHg BINDU (VMAX)1.66jj0QEU (VTI)1.33cm2 Mitral Valve MV E Sgevkneh89.4cm/sMV A Vchvlhtd10.5cm/sE/A ratio0.7 TDI Lateral E' Peak V7.99cm/sMedial E' Peak V4.29cm/sE/Lateral E'7.2 E/Medial E'13.4 Pulmonary Valve PV Peak Unhdkorm24.6cm/sPV Peak Grad.3mmHg Tricuspid Valve TR Peak Hlvhatyn695eh/sRAP HWHEIUQU1hiWuJT Peak Gr.13mmHg AOVE68ujHi LEFT VENTRICLE The left ventricle is normal size. There is mild concentric left ventricular hypertrophy. The left ventricular function is normal.EF-55% There is mild hypokinesis in the apical anterior wall. Transmitral Doppler flow pattern is Grade III-reversible restrictive diastolic dysfunction. No left ventricle thrombus noted on this study. There is no ventricular septal defect visualized. There is no left ventricular aneurysm. There is no mass noted in the left ventricle. RIGHT VENTRICLE The right ventricle is normal size. There is normal right ventricular wall thickness. The right ventricular systolic function is normal. ATRIA The left atrium is mildly dilated. The right atrium size is normal. The interatrial septum is intact with no evidence for an atrial septal defect. AORTIC VALVE The aortic valve is calcified and displays decreased opening. There is trace aortic regurgitation. There is mild to moderate valvular aortic stenosis. There is no aortic valvular vegetation. MITRAL VALVE The mitral valve appears rheumatic. The mitral valve is thickened but opens well. Mitral regurgitation is trace to mild. There is no mitral valve stenosis. There is no evidence of mitral valve prolapse. TRICUSPID VALVE The tricuspid valve leaflets are thickened , but open well. There is trace tricuspid regurgitation.RVSP-18 mmof Hg. There is no tricuspid valve stenosis. There is no tricuspid valve prolapse or vegetation. PULMONIC VALVE The pulmonic valve is borderline thickened. There is trace pulmonic valvular regurgitation. There is no pulmonic valvular stenosis. GREAT VESSELS The aortic root is normal in size. The ascending aorta is normal in size. The pulmonary artery is normal. The IVC is normal in size and collapses >50% with inspiration. PERICARDIAL EFFUSION There is moderate left pleural effusion. There is no pericardial effusion. <Conclusion> The left ventricle is normal size. There is mild concentric left ventricular hypertrophy. The left ventricular function is normal.EF-55% There is mild hypokinesis in the apical anterior wall. There is trace aortic regurgitation. There is mild to moderate valvular aortic stenosis. Mitral regurgitation is trace to mild. There is trace tricuspid regurgitation.RVSP-18 mmof Hg. The IVC is normal in size and collapses >50% with inspiration. There is moderate left pleural effusion. There is no pericardial effusion. No thrombus or vegetation noted.
--- NOTE | 2016-10-23 08:18 | HP ---
This is an 81-year-old female who came into the hospital with nausea, vomiting, and loss of appetite. HISTORY OF PRESENT ILLNESS: This 81-year-old female with history of gastritis, CHF, Takotsubo syndrome, nonobstructive coronary artery disease, history of congestive heart failure that resolved a couple years ago, dementia with significant mental impairment. She has been having problems with appetite. The patient's family wants to keep the patient comfortable and keep her symptomatically better. She came and brought into the hospital for evaluation of nausea and vomiting. She had 5-6 times for which was this morning. The patient had a bowel movement the day of admission; however, her appetite is poor There was no other complaint, no fever, no short of breath. The patient was also found to be a mildly lethargic PAST MEDICAL HISTORY: 1. She does have a large thyroid nodule that the family refused to do any further workup or need a biopsy. Prescription was given for them before. 2. The patient had colonoscopies in the past, more than 2 or 3 of them, was negative. She does have significant dementia, on Exelon patch and Namenda. FAMILY HISTORY: Noncontributory. SOCIAL HISTORY: She lives with her daughters, support her with also a family friend who helps. She has 2 daughters taking care of her and making decisions for her. REVIEW OF SYSTEMS: As in the present illness. PHYSICAL EXAMINATION: While she is there, the day of admission, which is 2016. VITAL SIGNS: Temperature is 97.3, heart rate 84, blood pressure 172/105, respirations 20, saturation 97%. HEAD AND NECK: Normal. No JVD, no thyromegaly. CHEST: Clear, good entry. CARDIAC: First sounds and second sounds are normal. ABDOMEN: Soft, nontender. EXTREMITIES: No edema. NEUROLOGIC: The patient on day of admission she is a little bit sleepy, but she responds to calling her name; however, she does not answer cognitively or properly. LABORATORY STUDIES: The patient did have on admission blood work that includes white count 4.1, hemoglobin 16.6, hematocrit 46.1, platelets 272. Chemistry: Sodium 130, potassium 4, chloride 93, bicarbonate 25, BUN 5, creatinine 0.6, blood sugar 121. Liver function test is normal. Total protein of 9.3, albumin 4.6. Procalcitonin is negative. CBC shows white count 4.1, hemoglobin 16.6, hematocrit 46.1, platelets 275. Urine was 0-2 white cells, negative, but it was positive for ketones. The patient also had ABGs; pO2 was 200, pH 7.55, pCO2 of 23, bicarb 20. PT was 12.6, PTT 30.8. The patient also had a CT abdomen and pelvis. Examination on the CT of the abdomen shows marked distended urinary bladder, neurogenic bladder or bladder outlet correlate clinically for. Also, she has a cyst on the lower density, right lower pole lower density lesion, approximately 4.2 cm x 4.2 cm, compatible with a cyst; also a 6 mm pulmonary nodule, right lower lobe, stable since CT off 2012. IMPRESSION AND PLAN: 1. Acute change in mental status intermittently. We will get a neuro consultation. 2. The patient does have a history of congestive heart failure, significant cardiac history. We will get a cardiology consult to see the patient. 3. Poor appetite. We will give a GI consultation. The patient was given Zofran. She seems better. Advance her diet as tolerated. We will give her Ensure and recommend to continue Ensure qid and will get a GI consult and endoscopic evaluation by Dr. Tam. Continue IV fluid. Blood cultures. IV Rocephin for now to rule out underlying infections. Continue current medication. Resume Exelon patch and Protonix 40 IV. The patient also was getting a dose of MiraLax for constipation. Ross Hanks MD cc: 223 TT: 10/22/2016 18:37:42 mn [id number]
--- NOTE | 2016-10-24 08:56 | PQF SEPSIS ---
10/24/16 Dr. Hanks, ED notes state "r/o sepsis." Was sepsis ruled in, ruled out, other? Thank you. Clarification of your documentation is requested to better reflect the severity of illness and intensity of treatment of your patient. Indicators present [] Temp < 96.8 or > 100.4 [] WBC count > 12,000/mm3 or <000/mm3 or 10% immature neutrophils [] Heart Rate > 90 [] Respiratory Rate > 20 [] Fever or hypothermia [] Chills [] Positive blood cultures [] Hypotension [] Metabolic acidosis (Elevated lactate level, anion gap or reduced blood pH) [] Acute confusion /Altered Mental Status [] Shock [x] Other: [] no sepsis Location in the medical record that reflects the above clinical findings: [] Treatment Provided: [] PHYSICIAN'S RESPONSE Based on your medical judgment of the clinical indicators outlined above, are you treating this patient for a known or suspected: [] Sepsis / Septicemia Please specify organism if known [] [x] SIRS (Systemic Inflammatory Response Syndrome) [] Severe Sepsis (Sepsis with Associated Organ Dysfunction) [] Fever of Unknown Origin [] Other, please indicate: [] [] If Unable to Determine, please check the box, sign and date. Present On Admission (POA) Indicator: [x] Present at the time of admission [] Not present at the time of admission [] Clinically Undetermined In responding to this query, please exercise your independent professional judgment. The fact that a question is asked does not imply that any particular answer is desired or expected. Thank you for your clarification on this documentation. If you have any questions please call:[ ] * Thank you, [ ] senior accounting manager NOHEMI
--- NOTE | 2016-10-24 08:58 | PQF CHF ---
Dr. Moreno, CHF is documented on your notes. Please indicate type and severity, as listed below. Thank you. Clarification of your documentation is requested to better reflect the severity of illness and intensity of treatment of your patient. Indicators present [] Diagnosis of CHF and/or history of CHF [] BNP > 200 [] Imaging Finding of Pulmonary Edema /Pleural Effusions [] Fluid/Volume Overload [] Pitting edema [] Ejection Fraction < 40% (Indicative of Systolic Heart Failure) [] Ejection Fraction > 40% (Indicative of Diastolic Heart Failure) [] Dyspnea / Orthopenea / Paroxysmal Nocturnal Dyspnea [] Other: Location in the medical record that reflects the above clinical findings: [] Treatment Provided: [] PHYSICIAN'S RESPONSE Based on your medical judgment of the clinical indicators outlined above, are you treating this patient for a known or suspected: [] Acute CHF [] Systolic [] Diastolic [] Combined [x] Chronic CHF [] Systolic [x] Diastolic [] Combined [] Acute on Chronic CHF []Systolic [] Diastolic [] Combined [] CHF due hypertension [] Acute systolic []Chronic systolic [] Acute/ chronic systolic [] Other, please indicate: [] [] If Unable to Determine, please check the box, sign and date. Present On Admission (POA) Indicator: [] Present at the time of admission [] Not present at the time of admission [] Clinically Undetermined In responding to this query, please exercise your independent professional judgment. The fact that a question is asked does not imply that any particular answer is desired or expected. Thank you for your clarification on this documentation. If you have any questions please call:[ ] * Thank you, [ ] house carpenter helper NOHEMI
== END 2016-10-21 20:56 | disposition home or self-care (01) ==
LOC: ED 17:28 → ERH 21:32 → 2RSO 10-20 01:45 → INTOOBSV 10-20 12:41 → OBSVTOIN 10-20 12:41 → 5RSO 10-21 17:58
PROVIDERS: ADMIT Internal Medicine; ATTEND Internal Medicine
DX: K29.70 Gastritis, unspecified, without bleeding (principal); N17.9 Acute kidney failure, unspecified; I13.0 Hypertensive heart and chronic kidney disease with heart failure and stage 1 through stage 4 chronic kidney disease, or unspecified chronic kidney disease; F03.90 Unspecified dementia, unspecified severity, without behavioral disturbance, psychotic disturbance, mood disturbance, and anxiety; G45.9 Transient cerebral ischemic attack, unspecified; K31.84 Gastroparesis; E87.1 Hypo-osmolality and hyponatremia; I50.32 Chronic diastolic (congestive) heart failure; I51.81 Takotsubo syndrome; E86.0 Dehydration; I10 Essential (primary) hypertension; E04.1 Nontoxic single thyroid nodule; H40.9 Unspecified glaucoma; I16.0 Hypertensive urgency; R65.10 Systemic inflammatory response syndrome (SIRS) of non-infectious origin without acute organ dysfunction; N18.9 Chronic kidney disease, unspecified; I25.10 Atherosclerotic heart disease of native coronary artery without angina pectoris; I25.2 Old myocardial infarction; K59.00 Constipation, unspecified; Z79.82 Long term (current) use of aspirin; Z87.01 Personal history of pneumonia (recurrent); Z87.11 Personal history of peptic ulcer disease; R42 Dizziness and giddiness; R40.2412 Glasgow coma scale score 13-15, at arrival to emergency department; N94.89 Other specified conditions associated with female genital organs and menstrual cycle
CPT/HCPCS: 70450; 71010; 74000; 74176; 80053; 81001; 82803; 83735; 84100; 84145; 84484; 85025; 85610; 85730; 87040; 87086; 93005; 93306; 96361; 96365; 96366; 96372; 96375; 96376; 97116; 97162; 99285; C9113; G0378; G8978; G8979; J0696; J1650; J2405; J7040; J7042; Q9967